=== PATIENT | female | born 1965 | race Caucasian/White ===

== ENCOUNTER 2017-03-08 11:08 | Inpatient (IN) | payer OTHER ==
[~2017-03-08] VITALS: Ht 162.6 cm; Wt 117.8 kg
[2017-03-08] MEDS ORDERED: ADENOSINE 6 MG/2 ML ONE (11:45)
[2017-03-08] MEDS ORDERED: LORazepam 2 MG/ML, 1ML IVPush ONE (12:00)
[2017-03-08] MEDS ORDERED: ADENOSINE 6 MG/2 ML IVPush ONE (12:00)
[2017-03-08] MEDS ORDERED: SODIUM CHLORIDE FLUSH 10ML SYR IVF ONE (12:00)
[2017-03-08 12:18] LABS: ASPARTATE AMINO TRANSFERASE 27 U/L (15-37); BLOOD UREA NITROGEN 19 mg/dL (7-18)
[2017-03-08 12:58] LABS: IS PT STATUS REG ER OR PRE ER? YES
[2017-03-08] MEDS ORDERED: ASPIRIN 81 MG TABLET CHEW PO ONE (13:00)
[2017-03-08] MEDS ORDERED: ASPIRIN 81 MG TABLET CHEW ONE (13:03)
[2017-03-08] MEDS ORDERED: GUAIFENESIN/DM 200-20MG, 10ML UDC PO PRN (15:00)
[2017-03-08] MEDS ORDERED: HYDROcodone/APAP 5/325 TABLET PO PRN (15:00)
[2017-03-08] MEDS ORDERED: MORPHINE SULFATE 4 MG/ML, 1ML IVPush PRN (15:00)
[2017-03-08] MEDS ORDERED: ACETAMINOPHEN 325 MG TABLET PO PRN (15:00)
[2017-03-08] MEDS ORDERED: DOCUSATE 100 MG CAPSULE PO PRN (15:00)
[2017-03-08] MEDS ORDERED: LORazepam 2 MG/ML, 1ML IVPush PRN (15:00)
[2017-03-08] MEDS ORDERED: ENOXAPARIN 40 MG/0.4 ML ONE (15:03)
[2017-03-08] MEDS: ENOXAPARIN 40 MG/0.4 ML SQ SCH (15:06)
[2017-03-08] MEDS: SODIUM CHLORIDE 0.9% 1,000 ML IV SCH (15:06)
[2017-03-08 15:35] LABS: IS PT STATUS REG ER OR PRE ER? YES
[2017-03-08 16:43] VITALS: BP 128/83
[2017-03-08] MEDS: FAMOTIDINE 20 MG TABLET PO SCH (17:04)
[2017-03-08] MEDS: ONDANSETRON 2MG/ML, 2ML IVP PRN (17:04)
[2017-03-08 19:44] VITALS: BP 109/65
[2017-03-08 21:25] LABS: IS PT STATUS REG ER OR PRE ER? NO
[2017-03-08] MEDS: TEMAZEPAM 15 MG CAPSULE PO PRN (22:40)
[2017-03-09 02:19] VITALS: BP 100/62
[2017-03-09] MEDS: SODIUM CHLORIDE 0.9% 1,000 ML IV SCH (04:14)
[2017-03-09] MEDS ORDERED: LORA1TAB46 PO (04:25)
[2017-03-09] MEDS ORDERED: ROSU10TA PO (04:25)
[2017-03-09] MEDS ORDERED: FLUO40CA2 PO (04:25)
[2017-03-09 06:15] LABS: BLOOD UREA NITROGEN 17 mg/dL (7-18)
[2017-03-09 06:51] VITALS: BP 120/74
[2017-03-09] MEDS: FAMOTIDINE 20 MG TABLET PO SCH ×2 (08:24→21:32)
[2017-03-09] MEDS: FLUOXETINE 20 MG CAPSULE PO SCH (08:24)
[2017-03-09] MEDS ORDERED: REGADENOSON 0.4 MG/5 ML SYRINGE ONE (08:44)
[2017-03-09 15:14] VITALS: BP 145/82
[2017-03-09] MEDS: ENOXAPARIN 40 MG/0.4 ML SQ SCH (15:21)
[2017-03-09] MEDS ORDERED: SODIUM CHLORIDE 0.9% 1,000 ML IV SCH (17:09)
[2017-03-09 20:03] VITALS: BP 131/85
[2017-03-09] MEDS ORDERED: CRESTOR 10 MG PO SCH (21:00)
[2017-03-09] MEDS: TEMAZEPAM 15 MG CAPSULE PO PRN (21:32)
[2017-03-10] MEDS: SODIUM CHLORIDE 0.9% 1,000 ML IV SCH ×2 (00:02→12:20)
[2017-03-10] MEDS: ONDANSETRON 2MG/ML, 2ML IVP PRN (00:05)
[2017-03-10 03:09] VITALS: BP 120/73
[2017-03-10 05:53] LABS: BLOOD UREA NITROGEN 15 mg/dL (7-18)
[2017-03-10] MEDS ORDERED: ADENOSINE 6 MG/2 ML ONE (10:03)
[2017-03-10] MEDS ORDERED: ISOPROTERENOL 0.2MG/ML, 5ML ONE (10:03)
[2017-03-10] MEDS ORDERED: LIDOCAINE 2%, 20ML ONE (10:04)
[2017-03-10] MEDS ORDERED: MIDAZOLAM 1 MG/ML, 5ML ONE (10:08)
[2017-03-10] MEDS ORDERED: FENTANYL PF 100 MCG/2ML ONE (10:08)
[2017-03-10] MEDS ORDERED: DIPHENHYDRAMINE 50 MG/ML, 1ML ONE (10:31)
[2017-03-10 12:48] VITALS: BP 129/89
[2017-03-10] MEDS: FAMOTIDINE 20 MG TABLET PO SCH (15:09)
[2017-03-10] MEDS: FLUOXETINE 20 MG CAPSULE PO SCH (15:09)
== END 2017-03-10 17:22 | disposition home or self-care (01) | DRG 274 ==
LOC: ED 12:32 → EDIP 13:19 → 5SO 16:27 → DCLOUNGE 03-10 17:02
PROVIDERS: ADMIT Internal Medicine; ATTEND Internal Medicine
PROC: 5A2204Z Restoration of Cardiac Rhythm, Single (ICD-10-PCS; principal; 2017-03-08)
PROC: 02583ZZ Destruction of Conduction Mechanism, Percutaneous Approach (ICD-10-PCS; 2017-03-10)
PROC: 4A0234Z Measurement of Cardiac Electrical Activity, Percutaneous Approach (ICD-10-PCS; 2017-03-10)
PROC: 02K83ZZ Map Conduction Mechanism, Percutaneous Approach (ICD-10-PCS; 2017-03-10)
PROC: 4A023FZ Measurement of Cardiac Rhythm, Percutaneous Approach (ICD-10-PCS; 2017-03-10)
DX: I47.1 Supraventricular tachycardia (principal); Z68.41 Body mass index [BMI] 40.0-44.9, adult; E78.5 Hyperlipidemia, unspecified; E66.01 Morbid (severe) obesity due to excess calories; F32.9 Major depressive disorder, single episode, unspecified; J30.2 Other seasonal allergic rhinitis; R74.8 Abnormal levels of other serum enzymes; F41.9 Anxiety disorder, unspecified; Z80.3 Family history of malignant neoplasm of breast; Z80.42 Family history of malignant neoplasm of prostate; Z82.49 Family history of ischemic heart disease and other diseases of the circulatory system; Z87.891 Personal history of nicotine dependence
CPT/HCPCS: 36415; 71010; 78452; 80048; 80053; 80061; 83036; 83735; 84436; 84443; 84484; 85025; 85610; 93005; 93017; 93306; 93613; 93621; 93623; 93653; 96374; C1766; C1894; J0153; J1650; J2250; J2405; J2785; J3010; J3490; A9502; C1730; C2630; C9898; J1200; J7030